=== PATIENT | female | born 1960 | race Caucasian/White ===

== ENCOUNTER 2019-04-06 08:06 | Day surgery (SDC) | payer OTHER ==
[~2019-04-06] VITALS: Ht 160 cm; Wt 75.1 kg
[2019-04-06] MEDS ORDERED: TIZANIDINE (08:55)
[2019-04-06] MEDS ORDERED: LOSARTAN (08:55)
[2019-04-06] MEDS ORDERED: MULTIVITAMIN (08:55)
[2019-04-06] MEDS ORDERED: AMLODIPINE (08:55)
[2019-04-06] MEDS ORDERED: GABAPENTIN (08:55)
[2019-04-06] MEDS ORDERED: MELOXICAM (08:55)
[2019-04-06] MEDS ORDERED: CYMBALTA (08:55)
[2019-04-06] MEDS ORDERED: ATORVASTATIN (08:55)
[2019-04-06 08:58] VITALS: Ht 160 cm; Wt 75.1 kg
[2019-04-06 08:59] VITALS: BP 132/76; PULSE 65; RESP 21
--- NOTE | 2019-04-06 09:04 | PREAC ---
Date/Time of Note Date/Time of Note DATE: 04/06/19 TIME: 09:03 Anesthesia Eval and Record Evaluation Time Pre-Procedure Interview DATE: 04/06/19 TIME: 09:03 Age 58 Sex female NPO: 8 hrs Preoperative diagnosis Screening Planned procedure Colonoscopy Past Medical History Past Medical History: Includes Cardio: HTN, Dyslipidemia Musculoskeletal: Other (Fibromyalgia) Surgery & Anesthesia Issues No known issue Meds Anticoagulation: No Beta Rikki within 24 hr: No Reason Beta Rikki not given: Pt. not on B-Rikki Reported Medications [Multivitamin] No Conflict Check 04/06/19 [Cymbalta] No Conflict Check 04/06/19 [Meloxicam] No Conflict Check 04/06/19 [Gabapentin] No Conflict Check 04/06/19 [Tizanidine] No Conflict Check 04/06/19 [Amlodipine] No Conflict Check 04/06/19 [Losartan] No Conflict Check 04/06/19 [Atorvastatin] No Conflict Check 04/06/19 Meds reviewed: Yes Allergies Coded Allergies: No Known Allergy (Unverified , 04/06/19) Allergies Reviewed: Yes Labs/Studies Labs Reviewed: Reviewed by anesthesiologist test: N/A Studies: ECG (n/a), CXR (n/a) Pre-procedure Exam Airway: Adequate mouth opening, Adequate thyromental dist Mallampati: Mallampati II Teeth: Normal Lung: Normal Heart: Normal ASA Physical Status ASA physical status: 2 Emergency: None Planned Anesthetic General/MAC: MAC Planned Pain Management Parenteral pain med Pre-operative Attestations Prior to commencing anesthesia and surgery, the patient was re-evaluated, there was verification of: *The patient's identity *The results of appropriate recent lab work and preoperative vital signs *The above evaluation not changing prior to induction *Anesthetic plan, risk benefits, alternative and complications discussed with patient/family; questions answered; patient/family understands, accepts and wishes to proceed. ANTHONY NAVARRO MD April 06, 2019 09:04
[2019-04-06] MEDS ORDERED: PROPOFOL 40 ML ONE (09:48)
--- NOTE | 2019-04-06 09:48 | PAC ---
Date/Time of Note Date/Time of Note DATE: 04/06/19 TIME: 09:48 Post-Anesthesia Notes Post-Anesthesia Note Last documented vital signs T: 98.0 Activity: WNL Respiratory function: WNL Cardiovascular function: WNL Mental status: Baseline Pain reasonably controlled: Yes Hydration appropriate: Yes Nausea/Vomiting absent: Yes ANTHONY NAVARRO MD April 06, 2019 09:48
[2019-04-06 10:12] VITALS: BP 129/71; PULSE 67; RESP 16
== END 2019-04-06 11:01 | disposition home or self-care (01) ==
LOC: GIL 08:06
PROVIDERS: ATTEND Internal Medicine Gastroenterology
DX: Z12.11 Encounter for screening for malignant neoplasm of colon (principal); K64.8 Other hemorrhoids; I10 Essential (primary) hypertension